=== PATIENT | female | born 1985 | race Asian ===

== ENCOUNTER 2018-03-06 02:03 | Emergency (ER) | payer BC ==
[~2018-03-06] VITALS: Ht 167.6 cm; Wt 106.1 kg
[2018-03-06 02:12] VITALS: Ht 167.6 cm; Wt 106.1 kg
[2018-03-06 03:58] VITALS: BP 131/74
== END 2018-03-06 04:00 | disposition home or self-care (01) ==
LOC: ED 02:03
DX: M79.672 Pain in left foot (principal); I10 Essential (primary) hypertension; Z90.89 Acquired absence of other organs; Z98.890 Other specified postprocedural states; Z91.013 Allergy to seafood
CPT/HCPCS: J1885